=== PATIENT | male | born 1965 | race Caucasian/White ===

== ENCOUNTER 2018-04-03 08:19 | Emergency (ER) | payer OTHER ==
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
[2018-04-03] MEDS ORDERED: NS 1,000 ML IV ONE (10:58)
[2018-04-03] MEDS ORDERED: ONDANSETRON 4 MG/2 ML VIAL IVP ONE (11:14)
[2018-04-03 11:31] LABS: PLATELET COUNT 169 10^3/uL (150-400)
[2018-04-03] MEDS ORDERED: LET GEL TOPICAL 1 EA SYR TP ONE (11:43)
[2018-04-03 13:54] VITALS: BP 106/60
== END 2018-04-03 13:54 | disposition home or self-care (01) ==
DX: L03.116 Cellulitis of left lower limb (principal); E86.9 Volume depletion, unspecified
CPT/HCPCS: 96365; J0690; J2270; J2405